=== PATIENT | female | born 1995 | race Caucasian/White ===

== ENCOUNTER 2018-11-03 01:20 | Emergency (ER) | payer MEDICAID, SELFPAY ==
[2018-11-03 09:39] LABS: D-Dimer 250 ng/mlFEU (<500)
== END 2018-11-03 05:30 ==
LOC: ER 05:09
PROVIDERS: Emergency Provider Emergency Medicine; PCP Nurse Practitioner Family
DX: F41.8 Other specified anxiety disorders (principal)
CPT/HCPCS: 36415; 93005; 96360; 99284; 84443; 85379; 93010

== ENCOUNTER 2019-02-02 20:30 | Outpatient (REF) | payer MEDICAID, SELFPAY ==
[2019-02-02 19:32] LABS: Abs Immature Grans 0.01 k/cumm (0.0-0.09); Absolute Basophil Count 0.05 k/cumm (0.0-0.2); Absolute Eosinophil Count 0.42 k/cumm (0.0-0.7); Absolute Lymphocyte Count 2.16 k/cumm (1.2-3.4); Absolute Monocyte Count 0.52 k/cumm (0.11-0.7); Absolute Neutrophil Count 3.35 k/cumm (1.2-6.7); Basophils % 0.8; Eosinophils % 6.5; HCT 43.6 % (36.0-46.0); Immature Grans % 0.2; Lymphocytes % 33.2; Mean Corp. HGB Concentration 34.4 g/dL (32.0-36.0); Mean Corpuscular Hemoglobin 30.5 pg (27.0-33.0); Mean Corpuscular Volume 88.6 fL (80-95); Mean Platelet Volume 9.9 fL (8.0-11.0); Neutrophils % 51.3; Platelet Count 387 x1000/uL (130-400); RBC 4.92 m/cumm (4.00-5.20); RBC Distribution Width 12.5 % (11.7-14.6); White Blood Cell Count 6.51 k/cumm (4.4-10.8)
[2019-02-02 20:01] LABS: ALT 26 U/L (12-78); AST 15 U/L (15-37); Albumin 3.9 g/dL (3.4-5.0); Alkaline Phosphatase 91 U/L (46-116); Anion Gap 10.7 mmol/L (3-11); BUN 11 mg/dL (7-18); Bilirubin, Total 0.4 mg/dL (0.2-1.0); CO2 24.3 mmol/L (21.0-32.0); CREATININE 0.83 mg/dL (0.55-1.02); Calcium 8.9 mg/dL (8.5-10.1); Chloride 104 mmol/L (98-107); Glucose 85 mg/dL (70-100); Potassium 4.2 mmol/L (3.5-5.1); Sodium 139 mmol/L (136-145); TSH (W/Ref FT4) 2.88 uIU/mL (0.358-3.74); Total Protein 7.6 g/dL (6.4-8.2)
== END 2019-02-02 20:50 ==
LOC: NCHCN 20:30
PROVIDERS: PCP Nurse Practitioner Family; Visit Provider Nurse Practitioner Family
DX: R53.83 Other fatigue (principal); R63.5 Abnormal weight gain
CPT/HCPCS: 80053; 84443; 85025

== ENCOUNTER 2019-08-11 16:02 | Outpatient (CLI) | payer MEDICAID, SELFPAY ==
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
== END 2019-08-11 16:22 ==
PROVIDERS: PCP Nurse Practitioner Family; Visit Provider Dietitian, Registered
DX: R63.5 Abnormal weight gain (principal); Z71.3 Dietary counseling and surveillance
CPT/HCPCS: 97802

== ENCOUNTER 2020-07-17 12:05 | Outpatient (REF) | payer MEDICAID, SELFPAY ==
--- NOTE | 2020-07-17 11:10 | PAPFT_PTH ---
PATIENT: GRETA LOPEZ LOC: [facility] U#:[id number] AGE/SX: 24/F ROOM: RE07/17/[address]: Razia Walker NP : 1995 BED: DIS: 07/17/2020 SPEC #: [id number] RECD: 07/17/20 17:41 STATUS: BAM REQ #: [id number] FLOR: 07/17/20 11:[address]: Razia Walker NP DEPT: [facility] Cytology RECD BY: Shobha Pollard ENTERED: 07/17/20 17:42 SP TYPE: PAPFT OTHR DR: Kostas Cabrera Tissues: 1 - CX/ENDOCX FOR PAP SMEARS Procedures: PAP THIN PREP/[facility] Screening Comments: [id number] (CHLAMYDIA/GC)
[2020-07-18 15:40] LABS: Chlamydia Result Negative (Negative); GC Result Negative (Negative)
== END 2020-07-17 12:25 ==
LOC: LBN 12:05
PROVIDERS: PCP Nurse Practitioner Family; Visit Provider Nurse Practitioner Women's Health
DX: Z12.4 Encounter for screening for malignant neoplasm of cervix (principal); Z11.3 Encounter for screening for infections with a predominantly sexual mode of transmission
CPT/HCPCS: 87491; 87591; 88142